=== PATIENT | male | born 1965 | race Hispanic/Latino ===

== ENCOUNTER 2024-08-30 21:19 | Emergency (ER) | payer OTHER ==
[2024-08-30] MEDS ORDERED: Labetalol HCl 100 MG/20 ML VIAL ONE (21:26)
[2024-08-30 22:01] LABS: #Basophils 0.1 thou/uL (0.0-0.2); #Eosinophils 0.5 thou/uL (0.0-0.7); #Lymphocytes 2.4 thou/uL (1.20-3.40); #Monocytes 0.5 thou/uL (0.11-0.59); #Neutrophils 6.7 thou/uL (1.40-6.50); %Basophils 0.7 % (0.0-1.0); %Lymphocytes 23.8 % (21.0-51.0); %Monocytes 5.3 % (0.0-10.0); %Neutrophils 65.3 % (42.0-75.0); Hematocrit 42.5 % (42.0-52.0); Hemoglobin 13.7 g/dL (14.0-18.0); INR-International Normal Ratio 1.1; Mean Corpuscular HGB CONC 32.3 g/dL (32.0-36.0); Mean Corpuscular Hemoglobin 24.6 pg (27.0-31.0); Mean Corpuscular Volume 76.2 fl (78.0-98.0); Mean Platelet Volume 7.5 fL (7.4-10.4); PTT 29.2 sec (22.9-36.1); Platelet Count 313 10x3/uL (130-400); RBC Distribution Width 13.9 % (11.5-14.5); Red Blood Cell (RBC) Count 5.58 mill/uL (4.70-6.10); White Blood Cell (WBC) Count 10.3 10x3/uL (4.8-10.8)
[2024-08-30 22:03] LABS: Anion Gap 12 mmol/L (10-20); BUN (Urea Nitrogen) 10 mg/dL (8.4-25.7); Calc. Creatinine Clearance 0 mL/min (70-130); Carbon Dioxide 23 mmol/L (22-29); Chloride 113 mmol/L (98-107); Potassium 4.1 mmol/L (3.5-5.1); Sodium 144 mmol/L (136-145)
[2024-08-30 22:04] LABS: ALT (SGPT) 33 U/L (8-55); AST (SGOT) 18 U/L (5-34); Albumin 3.8 g/dL (3.5-5.0); Alkaline Phosphatase 86 U/L (40-110); Bilirubin, Total 0.3 mg/dL (0.2-1.2); Calcium 9.2 mg/dL (7.8-10.44); Estimated GFR 90; Globulin 3.8 g/dL (2.4-3.5); Glucose 107 mg/dL (70-105); Protein, Total 7.6 g/dL (6.0-8.3); Troponin I Less than 0.010 ng/mL (< 0.028)
[2024-08-30] MEDS ORDERED: Acetaminophen 500 MG TAB ONE (23:53)
[2024-08-31] MEDS ORDERED: Acetaminophen 500 MG TAB ONE (04:55)
[2024-08-31] MEDS ORDERED: Carvedilol 3.125 MG TAB ONE (10:42)
[2024-08-31] MEDS ORDERED: hydrALAZINE 25 MG TAB ONE (10:42)
[2024-08-31] MEDS ORDERED: Lisinopril 20 MG TAB ONE (10:43)
[2024-08-31] MEDS ORDERED: metFORMIN 500 MG TAB ONE (10:43)
[2024-08-31] MEDS ORDERED: Oxybutynin 5 MG TAB PO SCH (11:00)
[2024-08-31] MEDS ORDERED: Pantoprazole DR 40 MG TAB ONE (11:39)
[2024-08-31] MEDS ORDERED: Insulin NPH Human Isophane 100 UNITS/ML (10 ML VIAL) SC SCH (12:00)
[2024-08-31] MEDS ORDERED: Acetaminophen 325 MG TAB ONE (12:00)
== END 2024-08-31 16:50 | disposition short-term general hospital (02) ==
LOC: NAV ERS 21:19
DX: I63.9 Cerebral infarction, unspecified (principal); E03.9 Hypothyroidism, unspecified; J44.9 Chronic obstructive pulmonary disease, unspecified; I10 Essential (primary) hypertension; E78.5 Hyperlipidemia, unspecified; E11.9 Type 2 diabetes mellitus without complications; I25.10 Atherosclerotic heart disease of native coronary artery without angina pectoris; Z79.82 Long term (current) use of aspirin; Z79.899 Other long term (current) drug therapy; Z79.4 Long term (current) use of insulin; Z79.84 Long term (current) use of oral hypoglycemic drugs
CPT/HCPCS: 36416; 70450; 71045; 80053; 84484; 85025; 85610; 85730; 93005; 94760; 96374; J1815